=== PATIENT | female | born 1945 | race Caucasian/White ===

== ENCOUNTER → 2018-10-02 | Outpatient (CLI) | payer MEDICARE, OTHER | END | disposition home or self-care (01) | LOC: RAH 10:00 | PROVIDERS: ATTEND Family Medicine | DX: Z12.31 Encounter for screening mammogram for malignant neoplasm of breast (principal) | CPT/HCPCS: 77067 ==

== ENCOUNTER → 2019-11-18 | Outpatient (CLI) | payer MEDICARE, OTHER | END | disposition home or self-care (01) | DX: Z12.31 Encounter for screening mammogram for malignant neoplasm of breast (principal) ==

== ENCOUNTER → 2020-05-01 | Outpatient (CLI) | payer MEDICARE, OTHER | END | disposition home or self-care (01) | LOC: RAH 10:00 | PROVIDERS: ATTEND Specialist | DX: I67.82 Cerebral ischemia (principal) | CPT/HCPCS: 70450 ==

== ENCOUNTER → 2020-12-08 | Outpatient (CLI) | payer MEDICARE, OTHER | END | disposition home or self-care (01) | LOC: RAH 14:15 | PROVIDERS: ATTEND Internal Medicine | DX: F03.90 Unspecified dementia, unspecified severity, without behavioral disturbance, psychotic disturbance, mood disturbance, and anxiety (principal); G31.9 Degenerative disease of nervous system, unspecified | CPT/HCPCS: 70450 ==

== ENCOUNTER → 2022-01-29 | Outpatient (CLI) | payer MEDICARE, OTHER | END | disposition home or self-care (01) | LOC: SHCH 13:52 | PROVIDERS: ATTEND Internal Medicine Cardiovascular Disease | DX: I07.1 Rheumatic tricuspid insufficiency (principal); I34.0 Nonrheumatic mitral (valve) insufficiency; R01.1 Cardiac murmur, unspecified; E78.5 Hyperlipidemia, unspecified; I10 Essential (primary) hypertension | CPT/HCPCS: 93306 ==

== ENCOUNTER → 2023-01-27 | Outpatient (CLI) | payer MEDICARE, OTHER | END | disposition home or self-care (01) | LOC: RAH 14:16 | PROVIDERS: ATTEND Internal Medicine | DX: Z12.31 Encounter for screening mammogram for malignant neoplasm of breast (principal) | CPT/HCPCS: 77067 ==

== ENCOUNTER → 2024-09-14 | Outpatient (CLI) | payer MEDICARE, OTHER ==
--- NOTE | 2024-09-14 10:22 | HMCIMG ---
DEXA BONE DENSITY SURVEY HISTORY: Osteoporosis COMPARISON: None FINDINGS: Bone densitometry study was performed. Bone mineral density of the left hip is 0.741 gram per centimeter square which corresponds to a T score of -1.6 and a Z score of 0.3. Bone mineral density of the left forearm is 0.332 grams per centimeter square which corresponds to a T score of -4.6 and a Z score of -1.8. IMPRESSION: 1. Osteopenia of left hip and osteoporosis of left forearm..
== END | disposition home or self-care (01) ==
LOC: RAH 08:26
PROVIDERS: ATTEND Internal Medicine
DX: M81.0 Age-related osteoporosis without current pathological fracture (principal); M85.88 Other specified disorders of bone density and structure, other site
CPT/HCPCS: 77080

== ENCOUNTER → 2025-04-27 | Outpatient (CLI) | payer MEDICARE, OTHER ==
--- NOTE | 2025-04-28 10:22 | HMCIMG ---
EXAMINATION: CT EXAMINATION OF THE CHEST WITHOUT CONTRAST CLINICAL HISTORY: Abnormal weight loss, Vertebrogenic low back pain. TECHNIQUE: Thin collimated axial CT images of the chest were obtained with sagittal and coronal reformatted images also submitted for interpretation. The total dose length product has been recorded in the electronic medical record. COMPARISON: None FINDINGS: Central airways are patent. Elevated left hemidiaphragm. Chronic obstructive pulmonary disease changes. 3 mm to 5 mm nodules along both horizontal fissure (series 3, images 23, 29), left lower lobe (series 3, images 29, 31). There is no pleural or pericardial effusion. The heart size is within normal limits. There are atheromatous wall calcification of the aorta. There is ascending aortic aneurysm measuring 3.9 x 3.5 cm. There is no axillary, supraclavicular, or mediastinal lymphadenopathy. Hilar millie stations are inadequately assessed without intravenous contrast. There is no focal thyroid abnormality. Limited noncontrast views of the upper abdomen demonstrate no acute findings. There is multilevel moderate degenerative spondylosis of the spine with levoscoliosis. There is no acute osseous abnormality. IMPRESSION: 3 mm to 5 mm nodules along both horizontal fissure and the left lower lobe. LUNG RADS 2: Follow up in 12 months with LDCT. Chronic obstructive pulmonary disease changes. No pulmonary infiltrates or pleural effusions. EXAMINATION: CT Abdomen and Pelvis without contrast. CLINICAL HISTORY: TECHNIQUE: Multiple contiguous axial CT images were obtained through the abdomen and pelvis. Coronal and sagittal reconstructions were also obtained. CT scan done according to ALARA (as low as reasonably achievable). COMPARISON: Prior known CT or cardiac nuclear medicine studies performed in the last 12 months; Prior CT on 04/08/2023 FINDINGS: Included chest is within normal limits. The liver, gallbladder, spleen, pancreas, adrenal glands, and kidneys appear within normal limits. There are colonic diverticula. Fecal matter filled large bowel loops. Rest of the bowel loops are normal in caliber without evidence of obstruction, ileus, or obvious bowel wall thickening. Normal appendix. Urinary bladder is well distended with normal wall thickening. Uterus is retroverted, normal in caliber. Both ovaries are normal in caliber. There is no ascites or lymphadenopathy. There are atheromatous wall calcification of the aorta and iliac arteries. No acute or suspicious osseous abnormality. There are multilevel moderate degenerative spondylotic changes of the spine with levoscoliosis. Posterior intervertebral screws fixation status between the lower thoracic and lumbar vertebrae. IMPRESSION: No bowel obstruction or inflammation. Constipation. Colonic diverticula. Normal appendix. No urinary calculi. No hydronephrosis. No free air, free fluid or fluid collection. Postsurgical and degenerative changes in the spine. /[place]
== END | disposition home or self-care (01) ==
LOC: RAH 13:36
PROVIDERS: ATTEND Internal Medicine
DX: K57.30 Diverticulosis of large intestine without perforation or abscess without bleeding (principal); K59.00 Constipation, unspecified; M47.817 Spondylosis without myelopathy or radiculopathy, lumbosacral region; I70.0 Atherosclerosis of aorta; I70.8 Atherosclerosis of other arteries; M41.87 Other forms of scoliosis, lumbosacral region; J44.9 Chronic obstructive pulmonary disease, unspecified; J98.6 Disorders of diaphragm; R91.1 Solitary pulmonary nodule; M47.814 Spondylosis without myelopathy or radiculopathy, thoracic region; F03.90 Unspecified dementia, unspecified severity, without behavioral disturbance, psychotic disturbance, mood disturbance, and anxiety; M54.51 Vertebrogenic low back pain
CPT/HCPCS: 71250; 74176